=== PATIENT | male | born 1935 | race Caucasian/White ===

== ENCOUNTER 2016-08-15 12:32 | Inpatient (IN) | payer MEDICARE, MEDICAID ==
[~2016-08-15] VITALS: Ht 167.6 cm; Wt 56.4 kg
[~2016-08-15 12:32] MED LIST: CARV3.12 PO; DUTA0.5C PO; FURO-144 PO; PRED20TA PO; ROSU5TAB PO; TERA2CAP4 PO; VALS40TA4 PO
[2016-08-15] MEDS ORDERED: MORPHINE SULFATE INJ 2 MG/ML DISP.SYRIN IV ONE ×2 (13:00→14:30)
[2016-08-15 13:07] LABS: BASOPHILS # (AUTO) 0.2 /CMM (0.0-0.2); BASOPHILS % (AUTO) 1.3 % (0.0-2.0); EOSINOPHILS % (AUTO) 0.3 % (0.0-6.0); HEMATOCRIT 45 % (39-51); HEMOGLOBIN 14.6 g/dL (13.5-17.5); LYMPHOCYTES # (AUTO) 0.8 /CMM (0.8-4.8); LYMPHOCYTES % (AUTO) 5.9 % (20.0-44.0); MEAN CORPUSCULAR HEMOGLOBIN 29 PG (26.0-33.0); MEAN CORPUSCULAR HGB CONC 33 g/dl (31.0-36.0); MEAN CORPUSCULAR VOLUME 89 fL (80-96); MONOCYTES # (AUTO) 0.4 /CMM (0.1-1.30); MONOCYTES % (AUTO) 3.3 % (2.0-12.0); NEUTROPHILS # (AUTO) 12.2 /CMM (1.8-8.9); NEUTROPHILS % (AUTO) 89.2 % (43.0-81.0); PLATELET COUNT (AUTO) 147 /CMM (150-450); RDW COEFFICIENT OF VARIATION 12.6 (11.5-15.0); WHITE BLOOD COUNT (AUTO) 13.6 K/uL (4.3-11.0)
[2016-08-15] MEDS ORDERED: MORPHINE SULFATE INJ 2 MG/ML DISP.SYRIN ONE (13:08)
[2016-08-15 13:17] LABS: CALCIUM, SERUM 9.4 mg/dL (8.5-10.1); CREATININE 0.9 mg/dL (0.6-1.3); POTASSIUM 3.7 mmol/L (3.5-5.1)
[2016-08-15 13:23] LABS: INR 0.97 (0.87-1.13); PROTHROMBIN TIME 10.1 SECS (9.5-12.7)
[2016-08-15 13:26] LABS: TROPONIN I 0.03 ng/mL (0.00-0.056)
--- NOTE | 2016-08-15 14:00 | NUR ---
MS ORR NOTES PATIENT REFUSING TO BE TURNED FOR US TO LOOK AT SACRUM/BACK. PATIENT STATES HE DOESNT HAVE ANYTHING. PT WILL INFORM WHEN HE WILL ALLOW Addendum: 08/18/16 at 0810 by PARRISH MEYER RN INCORRECT TIME; 1600 IS CORRECT TIME
--- NOTE | 2016-08-15 14:04 | NUR ---
PAGED DR MCDANIELS.
--- NOTE | 2016-08-15 14:05 | NUR ---
PAGEMatthew GARCIA FOR ORTHO.
--- NOTE | 2016-08-15 14:21 | NUR ---
REPAGED CAN GARCIA
[2016-08-15] MEDS ORDERED: MORPHINE SULFATE INJ 4 MG/ML DISP.SYRIN ONE (14:29)
[2016-08-15] MEDS ORDERED: hydrALAZINE HCL 25 MG TABLET PO PRN (14:30)
[2016-08-15] MEDS ORDERED: MAGNESIUM HYDROXIDE 30 ML UDC PO PRN (14:30)
[2016-08-15] MEDS ORDERED: ZOLPIDEM TARTRATE 5 MG TABLET PO PRN (14:30)
[2016-08-15] MEDS ORDERED: MAG HYDROX/AL HYDROX/SIMETH 30 ML UDC PO PRN (14:30)
[2016-08-15] MEDS ORDERED: ONDANSETRON HCL/PF 4 MG/2 ML VIAL IVP PRN (14:30)
[2016-08-15] MEDS ORDERED: ALBUTEROL FS 2.5 MG/3 ML VIAL.NEB NEB PRN (14:30)
[2016-08-15] MEDS ORDERED: ACETAMINOPHEN 325 MG TABLET PO PRN (14:30)
[2016-08-15] MEDS ORDERED: VALS40TA11 PO (14:34)
[2016-08-15] MEDS ORDERED: POTA10CA43 PO (14:34)
--- NOTE | 2016-08-15 14:43 | NUR ---
called to give report, was told to call back in 5 min
[2016-08-15] MEDS ORDERED: CEFTRIAXONE 1 G in IV D5W 50 ML IV SCH (15:00)
[2016-08-15] MEDS ORDERED: LORAZEPAM INJ 2 MG/ML VIAL IV PRN (15:00)
[2016-08-15] MEDS ORDERED: IV SET PRIMARY PUMP SET 1 EA INFUS.SET MC ONE (15:07)
[2016-08-15 15:10] VITALS: BP 116/57
[2016-08-15] MEDS: IV NS 0.9% 1,000 ML IV PRN (15:11)
--- NOTE | 2016-08-15 15:15 | NUR ---
MS KIRBY OPENING RECEIVED PT A/OX4 MOSTLY BULGARIAN SPEAKING. TRANSLATION WITH KIRBY ANDERSON. PT STATES 10/10 PAIN WITH MOVEMENT. DENIES SOB DIFFICULTY BREATHING. EQUAL AND UNLABORED RESPIRATIONS. PT STATES NO NEEDS AT THIS TIME AND LEFT IN POSITION OF COMFORT WITH CALL LIGHT IN REACH, BED LOWERED AND LOCKED, RAILS UPX3 FOR SAFETY. PATIENT AWARE WE ARE NEEDING A URINE SAMPLE. PATIENT REFUSING TO CHANGE INTO HOSPITAL GOWN AT THIS TIME, ASKING TO REST FIRST. AWARE WE WILL TAKE PICTURES OF HIS SKIN NOW THEN THAT WE CAN SEE WITHOUT MOVING HIM; PATIENT IS AGREEABLE
--- NOTE | 2016-08-15 15:30 | NUR ---
MS RN NOTES URINE SAMPLE COLLECTED AND LAB PICKED UP
--- NOTE | 2016-08-15 16:00 | NUR ---
MS RN NOTES PT RESTING COMFORTABLY AT THIS TIME. ASLEEP AWAKE TO LIGHT TOUCH
--- NOTE | 2016-08-15 16:18 | NUR ---
MS RN NOTES MD MCKEON AT BEDSIDE.
[2016-08-15 16:44] LABS: APPEARANCE,URINE CLEAR (CLEAR); BILIRUBIN,URINE NEGATIVE (NEGATIVE); BLOOD, URINE TRACE Ery/uL (NEGATIVE); COLOR,URINE YELLOW (YELLOW); KETONES,URINE TRACE (NEGATIVE); LEUKOCYTE ESTERASE ,URINE NEGATIVE (NEGATIVE); NITRITE, URINE NEGATIVE (NEGATIVE); PROTEIN,URINE NEGATIVE (NEGATIVE); UGLUCOSE NEGATIVE (NEGATIVE); UROBILINOGEN,URINE 0.2 EU/dL (0.2)
[2016-08-15] MEDS ORDERED: SECONDARY IV SET 1 EA INFUS.SET MC ONE (17:00)
[2016-08-15 17:02] VITALS: BP 121/68
[2016-08-15] MEDS: CARVEDILOL 3.125 MG TABLET PO SCH (17:07)
[2016-08-15] MEDS ORDERED: ATEN25TA PO (17:27)
[2016-08-15 17:37] LABS: ADD URINE CULTURE NO; RBC,URINE 0-2 /HPF (0-2); WBC,URINE 0-2 /HPF (0-3)
--- NOTE | 2016-08-15 18:33 | NUR ---
MS RN CLOSING PT STABLE NO COMPLICATIONS NO CHANGES. PATIENT RESTING WELL AND STATES NO NEEDS AT THIS TIME. PT WITH CALL LIGHT IN REACH, BED LOWERED AND LOCKED, RAILS UPX3 FOR SAFETY WITH BED ALARM ON. PATIENT CARE WILL BE TRANSFERRED TO KIRBY CASILLAS Addendum: 08/18/16 at 0810 by PARRISH MEYER RN ENDORSED TO RN NEEDING BACK/SACRUM CHECK
--- NOTE | 2016-08-15 19:07 | NUR ---
RN INITIAL NOTES RECEIVED PATIENT IN BED, SLEEPING COMFORTABLY. ON ROOM AIR WITH NO RESPIRATORY DISTRESS NOTED. PATIENT IS EASILY AROUSABLE WITH VERBAL AND TACTILE STIMULI. DENIES PAIN AND DISCOMFORT AT THIS TIME. WITH IVF OF NS AT 75CC/HR, RUNNING ON PATIENT'S R AC, G20, NO SIGNS OF INFILTRATION NOTED. PATIENT'S NEEDS ANTICIPATED AND MET. SAFETY AND COMFORT ENSURED. BED IN LOW AND LOCKED POSITION. CALL LIGHT IN REACH. WILL MONITOR.
[2016-08-15 20:00] VITALS: BP_SYST 113; BP_SYST 96; BP_DIAS 53; BP_DIAS 64
--- NOTE | 2016-08-15 20:30 | NUR ---
RN NOTES PATIENT SEEN AND EXAMINED BY JOSE SALMON. PATIENT SCHEDULED FOR SURGERY IN AM, R HIP INTRAMEDULLARY RODDING C/O DR. EDGE. PATIENT AGREEABLE WITH SURGERY DISCUSSED BY PA. CONSENT OBTAINED FROM PATIENT, SIGNED AND FILED IN CHART.
[2016-08-15] MEDS: ENOXAPARIN SODIUM 40 MG/0.4 ML DISP.SYRIN SQ SCH (21:00)
[2016-08-15] MEDS: MORPHINE SULFATE INJ 2 MG/ML DISP.SYRIN IV PRN (21:02)
[2016-08-15] MEDS: ATORVASTATIN 10 MG TABLET PO SCH (21:03)
--- NOTE | 2016-08-15 21:30 | NUR ---
RN NOTES PATIENT PROVIDED WITH PM CARE. PATIENT EXCLAIMING WITH PAIN WITH CARE RENDERED. PATIENT'S SAFETY AND COMFORT ENSURED AT ALL TIMES. HANDLED GENTLY AT ALL TIMES, MOVED VIA LOG ROLL AND REST PERIODS PROVIDED WITH PATIENT'S TOLERANCE. PATIENT WAS MEDICATED WITH MSO4 ORDERED PRN. PATIENT AT THIS TIME IS RESTING COMFORTABLY IN BED, EASILY AROUSABLE WITH VERBAL AND TACTILE STIMULI. NOT IN ANY DISTRESS. IVF INFUSING WELL. INITIATED O2 AT 2LPM VIA NC FOR COMFORT, PATIENT WAS SATURATING AT 92% ON ROOM AIR, 98% WITH O2. CALL LIGHT IN REACH.
--- NOTE | 2016-08-16 | NUR ---
RN NOTES PLACED PATIENT ON NPO P MN FOR SCHEDULED PROCEDURE IN AM.
[2016-08-16] MEDS: IV NS 0.9% 1,000 ML IV PRN (02:42)
[2016-08-16] MEDS: MORPHINE SULFATE INJ 2 MG/ML DISP.SYRIN IV PRN ×2 (02:42→16:44)
--- NOTE | 2016-08-16 03:17 | NUR ---
RN NOTES PATIENT WOKE UP AT 0230 WITH C/O R HIP PAIN, 01/01, PATIENT MEDICATED PER PATIENT'S REQUEST. PATIENT AT THIS TIME IS SLEEPING COMFORTABLY, ON 2LPM OF O2 VIA NC. RESPIRATION IS EVEN AND UNLABORED. IVF INFUSING WELL ON PATIENT'S R AC. SAFETY AND COMFORT ENSURED. CALL LIGHT IN REACH.
[2016-08-16 06:30] LABS: BASOPHILS % (AUTO) 0.2 % (0.0-2.0); EOSINOPHILS # (AUTO) 0.1 /CMM (0.0-0.7); EOSINOPHILS % (AUTO) 0.7 % (0.0-6.0); HEMATOCRIT 39 % (39-51); HEMOGLOBIN 13.1 g/dL (13.5-17.5); LYMPHOCYTES # (AUTO) 1.2 /CMM (0.8-4.8); MEAN CORPUSCULAR HEMOGLOBIN 30 PG (26.0-33.0); MEAN CORPUSCULAR HGB CONC 33 g/dl (31.0-36.0); MEAN CORPUSCULAR VOLUME 89 fL (80-96); MONOCYTES # (AUTO) 0.5 /CMM (0.1-1.30); MONOCYTES % (AUTO) 4.8 % (2.0-12.0); NEUTROPHILS # (AUTO) 8.4 /CMM (1.8-8.9); NEUTROPHILS % (AUTO) 82.3 % (43.0-81.0); PLATELET COUNT (AUTO) 139 /CMM (150-450); RDW COEFFICIENT OF VARIATION 13.4 (11.5-15.0); RED BLOOD CELL COUNT(AUTO) 4.41 MIL/uL (4.5-6.0); WHITE BLOOD COUNT (AUTO) 10.3 K/uL (4.3-11.0)
[2016-08-16] MEDS: PANTOPRAZOLE 40 MG TABLET.DR PO SCH (06:40)
--- NOTE | 2016-08-16 06:52 | NUR ---
RN CLOSING NOTES PATIENT WITH NO ACUTE DISTRESS OBSERVED OVERNIGHT. PATIENT HANDLED GENTLY WITH CARE AT ALL TIMES. PATIENT'S PAIN MANAGED WITH PAIN MEDICATIONS GIVEN PER PATIENT'S REQUEST, WITH GOOD HELP FOR THE PATIENT, PATIENT ABLE TO SLEEP COMFORTABLY THROUGH THE NIGHT. NOT IN ANY FORM OF DISTRESS, PLACED ON O2 VIA NC AT 2LPM FOR COMFORT. IVF INFUSING WELL, NO SIGNS OF INFILTRATION ON PATIENT'S R AC PIV. PATIENT'S NEEDS ANTICIPATED AND MET. SAFETY AND COMFORT ENSURED. KEPT CLEAN AND DRY. BED IN LOW AND LOCKED POSITION. CALL LIGHT IN REACH. WILL ENDORSE ACCORDINGLY FOR CONTINUITY OF CARE.
--- NOTE | 2016-08-16 07:38 | NUR ---
RN OPEN NOTES RECEIVE REPORT FROM FILLER SIFTER HELPER NURSE. PATIENT IS IN BED, WITH HIS EYE CLOSED, AROUSING TO LIGHT TOUCH AND CALLING HIS NAME. LITHUANIAN SPEAKER. IV SITE IS INTACT AND POTENT, NS IS CURRENTLY RUNNING AT 75ML/HR. NO SIGNS OR SYMPTOMS OF DISTRESS. BED IS IN LOW POSITION, LOCKED AND 2 SIDE-RAILS ARE UP. WILL CONTINUE TO MONITOR AND ASSESS PATIENT THROUGHOUT MY SHIFT.
[2016-08-16 08:00] VITALS: BP 118/59
--- NOTE | 2016-08-16 08:10 | NUR ---
RN NOTES 0900 MEDS PATIENT IS NPO EXCEPT MEDS. SPOKE TO OR SINCE ALL HIS MEDS ARE BLOOD PRESSURE MEDS. CURRENT BLOOD PRESSURE IS 118/59. OR ADVISED TO HOLD ON FOR BP MEDS.
[2016-08-16 08:18] LABS: CALCIUM, SERUM 8.5 mg/dL (8.5-10.1); CREATININE 0.9 mg/dL (0.6-1.3); MAGNESIUM 1.7 mg/dL (1.8-2.4); POTASSIUM 3.5 mmol/L (3.5-5.1)
--- NOTE | 2016-08-16 08:53 | NUR ---
RN NOTES / SURGERY PATIENT IS OFF THE FLOOR FOR SURGERY
[2016-08-16] MEDS ORDERED: FENTANYL PF 100MCG/2ML AMPUL ONE (08:54)
[2016-08-16] MEDS ORDERED: ALBUTEROL FS 2.5 MG/3 ML VIAL.NEB ONE (08:54)
[2016-08-16] MEDS: VALSARTAN 40 MG TABLET PO SCH (09:00)
[2016-08-16] MEDS: CARVEDILOL 3.125 MG TABLET PO SCH ×2 (09:00→16:47)
[2016-08-16] MEDS: FUROSEMIDE 40 MG TABLET PO SCH (09:00)
[2016-08-16] MEDS ORDERED: HYDROMORPHONE INJ 2 MG/ML DISP.SYRIN ONE (10:16)
[2016-08-16] MEDS ORDERED: ANESTHESIA TRAY IN PYXIS 1 EA TRAY MC ONE (10:18)
--- NOTE | 2016-08-16 10:45 | NUR ---
RN NOTES PATIENT CAME BACK FROM SURGERY. BLOOD PRESSURE 124/66, HR 87 OXYGEN 92 DENIED PAIN.
[2016-08-16 11:00] VITALS: BP 116/70
[2016-08-16] MEDS ORDERED: SECONDARY IV SET 1 EA INFUS.SET MC ONE ×2 (11:07→16:38)
[2016-08-16] MEDS: Magnesium 1GM/D5W 100ML PREMIX 100 ML IV SCH ×2 (11:11→13:48)
--- NOTE | 2016-08-16 13:59 | NUR ---
RN NOTES SPOKE WITH DR FOWLER ON THE UNIT. MD DISCONTINUE FLUID. MD MADE AWARE OF POTASSIUM LEVEL OF 3.5. K SUPPLEMENT WILL BE ORDER BY
[2016-08-16] MEDS ORDERED: POTASSIUM CHLORIDE 20 MEQ POWDER PACKET PO ONE (14:00)
[2016-08-16 16:00] VITALS: BP 105/58
[2016-08-16] MEDS: ANCEF 1 GM/50 ML D5W IV SCH ×2 (16:46)
[2016-08-16] MEDS: HYDROCODONE/APAP 5/325MG 1 EACH TABLET PO PRN (19:00)
--- NOTE | 2016-08-16 19:42 | NUR ---
RN CLOSING NOTES GAVE REPORT TO MANAGER OF MEDICAL NURSE. PATIENT CONDITION IS STABLE. IV SITE IS POTENT AND INTACT. BED IN LOW POSITION, LOCKED AND 2 SIDE RAILS ARE UP.
--- NOTE | 2016-08-16 19:43 | NUR ---
RN OPEN NOTES RECEIVED PATIENT AWAKE IN BED. A/O X3. NO SIGNS OF DISTRESS OR DISCOMFORT. BREATHING EVEN AND UNLABORED. IV ACCESS IN RAC PATENT AND INTACT, NO SIGNS OF REDNESS OR INFILTRATION. HAS DRESSING ON RIGHT LEG C/D/I. DENIES ANY PAIN AT THIS TIME. BED IN LOW LOCKED POSITION WITH SIDE RAILS X2. CALL LIGHT WITHIN REACH. WILL CONTINUE TO MONITOR.
[2016-08-16 20:00] VITALS: BP 90/56
--- NOTE | 2016-08-16 20:51 | NUR ---
RN NOTES SPOKE WITH VISH AIRFIELD ENGINEER OFFICER, REGARDING PATIENT BP OF 90/56 WHICH IS LOWER THAN BASELINE BP. PATIENT IS CURRENTLY ASYMPTOMATIC. NO SIGNS OF BLEEDING. PER VISH SHE WILL ORDER STAT H&H AND CONTINUE TO MONITOR.
[2016-08-16] MEDS: ENOXAPARIN SODIUM 40 MG/0.4 ML DISP.SYRIN SQ SCH (21:00)
[2016-08-16 21:28] LABS: BASOPHILS % (AUTO) 0.1 % (0.0-2.0); HEMATOCRIT 36 % (39-51); HEMOGLOBIN 12.1 g/dL (13.5-17.5); LYMPHOCYTES # (AUTO) 0.9 /CMM (0.8-4.8); LYMPHOCYTES % (AUTO) 7.3 % (20.0-44.0); MEAN CORPUSCULAR HEMOGLOBIN 30 PG (26.0-33.0); MEAN CORPUSCULAR HGB CONC 33 g/dl (31.0-36.0); MEAN CORPUSCULAR VOLUME 88 fL (80-96); MONOCYTES # (AUTO) 0.8 /CMM (0.1-1.30); MONOCYTES % (AUTO) 6.7 % (2.0-12.0); NEUTROPHILS # (AUTO) 10.4 /CMM (1.8-8.9); NEUTROPHILS % (AUTO) 85.9 % (43.0-81.0); PLATELET COUNT (AUTO) 131 /CMM (150-450); RDW COEFFICIENT OF VARIATION 13.2 (11.5-15.0); RED BLOOD CELL COUNT(AUTO) 4.09 MIL/uL (4.5-6.0); WHITE BLOOD COUNT (AUTO) 12.1 K/uL (4.3-11.0)
[2016-08-16] MEDS: ATORVASTATIN 10 MG TABLET PO SCH (22:13)
[2016-08-17] VITALS (7 sets, daily range): BP systolic 91–114; BP diastolic 54–69
[2016-08-17] MEDS: ANCEF 1 GM/50 ML D5W IV SCH ×2 (00:47)
--- NOTE | 2016-08-17 00:50 | NUR ---
RN NOTES PATIENT COMPLAIN OF PAIN 6/10 IN RIGHT HIP. ASKED TO HAVE MORPHINE. ADVISED PATIENT BP IS STILL TOO LOW 93/63 TO SAFELY ADMINISTER MORPHINE. ADMINISTERED TYLENOL 650MG INSTEAD. WILL CONTINUE TO MONITOR AND ASSESS.
--- NOTE | 2016-08-17 01:40 | NUR ---
RN NOTES PATIENT IS NOW ASLEEP. WILL CONTINUE TO MONITOR.
[2016-08-17] MEDS: HYDROCODONE/APAP 5/325MG 1 EACH TABLET PO PRN ×5 (05:20→21:15)
--- NOTE | 2016-08-17 05:21 | NUR ---
RN NOTES PATIENT AWOKE STATING HE IS HAVING PAIN 8/10 IN RIGHT HIP. ADMINISTERED NORCO PRN ORDERED. CURRENT BP 98/65 HR 82. WILL CONTINUE TO MONITOR.
--- NOTE | 2016-08-17 06:59 | NUR ---
RN CLOSING NOTES PATIENT RESTING IN BED. A/O X3. NO SIGNS OF DISTRESS OR DISCOMFORT. BREATHING EVEN AND UNLABORED. IV ACCESS IN RAC PATENT AND INTACT, NO SIGNS OF REDNESS OR INFILTRATION. HAS DRESSING ON RIGHT HIP C/D/I. TOLERABLE PAIN LEVEL AT 3/10 AT THIS TIME. NO SIGNIFICANT CHANGES THROUGH THE NIGHT. PATIENT KEPT CLEAN DRY AND COMFORTABLE. BED IN LOW LOCKED POSITION WITH SIDE RAILS X2. CALL LIGHT WITHIN REACH. WILL ENDORSE TO AM SHIFT FOR KRIS.
--- NOTE | 2016-08-17 07:10 | NUR ---
MS RN OPENING RECEIVED PT A/XO4 DENIES SOB, DIFFICULTY BREATHING AND STATES PAIN IS TOLERABLE WITH THE NORCO BEING GIVEN. PT RESPIRATIONS EQUAL AND UNLABORED. PER RN PATIENT BP LOW IN THE 90'S/5O'S AND PER MD AT NIGHT NO ORDERS WE ARE TO MONITOR. PT IS STABLE NO DIZZINESS OR SYMPTOMS. PATIENT STATES NO NEEDS AT THIS TIME AND IN POSITION OF COMFORT. CALL LIGHT IN REACH, BED LOWERED AND LOCKED, RAILS UPX3 FOR SAFETY WITH BED ALARM ON. WILL ROUND Q2H OR LESS PER NEEDS
[2016-08-17 07:23] LABS: CALCIUM, SERUM 8.5 mg/dL (8.5-10.1); MAGNESIUM 2.2 mg/dL (1.8-2.4); PHOSPHORUS 3.1 mg/dL (2.5-4.9); POTASSIUM 4.6 mmol/L (3.5-5.1)
[2016-08-17 08:00] LABS: BASOPHILS % (AUTO) 0.2 % (0.0-2.0); EOSINOPHILS # (AUTO) 0.1 /CMM (0.0-0.7); HEMATOCRIT 37 % (39-51); HEMOGLOBIN 12.5 g/dL (13.5-17.5); LYMPHOCYTES # (AUTO) 1.4 /CMM (0.8-4.8); MEAN CORPUSCULAR HEMOGLOBIN 30 PG (26.0-33.0); MEAN CORPUSCULAR HGB CONC 34 g/dl (31.0-36.0); MEAN CORPUSCULAR VOLUME 89 fL (80-96); MONOCYTES # (AUTO) 0.6 /CMM (0.1-1.30); MONOCYTES % (AUTO) 6.1 % (2.0-12.0); NEUTROPHILS % (AUTO) 78.7 % (43.0-81.0); PLATELET COUNT (AUTO) 121 /CMM (150-450); RDW COEFFICIENT OF VARIATION 13.4 (11.5-15.0); RED BLOOD CELL COUNT(AUTO) 4.17 MIL/uL (4.5-6.0); WHITE BLOOD COUNT (AUTO) 10.2 K/uL (4.3-11.0)
[2016-08-17] MEDS: PANTOPRAZOLE 40 MG TABLET.DR PO SCH (08:30)
[2016-08-17] MEDS: VALSARTAN 40 MG TABLET PO SCH (08:31)
[2016-08-17] MEDS: CARVEDILOL 3.125 MG TABLET PO SCH ×2 (08:31→16:46)
[2016-08-17] MEDS: FUROSEMIDE 40 MG TABLET PO SCH (08:31)
[2016-08-17] MEDS: Z GUARD REMEDY 2 OZ OINT TP PRN (08:32)
--- NOTE | 2016-08-17 08:40 | NUR ---
MS RN NOTES PATIENT EDUCATED TO WHY WE ARE NOT GIVING BP MEDICATIONS AND LASIX THIS AM. PATIENT STATES UNDERSTANDING. BP BETTER AT THIS TIME 97/55
--- NOTE | 2016-08-17 09:00 | NUR ---
MS RN NOTES PATIENT SACRUM REDDENED. HE IS REFUSING TO HAVE LINENS CHANGED. HE USES URINAL AND AT TIMES CAN MISS MAKING HIMSELF WET. EDUCATED PATIENT ON IMPORTANCE OF OFFLOADING AND TURNING.
[2016-08-17] MEDS ORDERED: DIFL5DRO OP (10:17)
--- NOTE | 2016-08-17 12:00 | NUR ---
MS RN NOTES DR MCDANIELS AWARE OF LOW BP THIS AM AND LAST NIGHT. PT STABLE
--- NOTE | 2016-08-17 12:05 | NUR ---
MS RN NOTES PER DR MCDANIELS GIVE LOVENOX 1 DOSE NOW. SQ 40MG
[2016-08-17 12:26] LABS: ALBUMIN 2.9 g/dL (3.4-5.0); BILIRUBIN,DIRECT 0.1 mg/dL (0.0-0.2); BILIRUBIN,TOTAL 0.7 mg/dL (0.2-1.0); TOTAL PROTEIN, SERUM 6.5 g/dL (6.4-8.2)
[2016-08-17] MEDS ORDERED: ENOXAPARIN SODIUM 40 MG/0.4 ML DISP.SYRIN SQ ONE (12:30)
[2016-08-17] MEDS: ENOXAPARIN SODIUM 40 MG/0.4 ML DISP.SYRIN SQ SCH (12:42)
--- NOTE | 2016-08-17 13:25 | NUR ---
MS RN NOTES PER DR ENEDELIA ROBERTS TO CHANGE NORCO TO Q3H FOR PATIENT
--- NOTE | 2016-08-17 17:26 | NUR ---
MS RN NOTES NOTIFIED VIVIAN PAN THAT PATIENT DAUGHTER CALLED AND PICKED SNF [facility] [address].
--- NOTE | 2016-08-17 18:39 | NUR ---
MS RN CLOSING PT STABLE NO COMPLICATIONS THROUGHOUT THE DAY. PAIN CONTROLLED WITH PRN MEDICATIONS AND NON PHARM MEASURES. ALL DUE MEDS GIVEN AND ALL NEEDS MET. PATIENT STATES NO NEEDS. CALL LIGHT IN REACH, BED LOWERED AND LOCKED, RAILS UPX3 FOR SAFETY AND BED ALARM ON. PATIENT STABLE AT THIS TIME. CARE WILL BE ENDORSED TO RN AT THIS TIME
--- NOTE | 2016-08-17 19:20 | NUR ---
RN OPEN NOTES RECEIVED PATIENT AWAKE IN BED. A/O X4. NO SIGNS OF DISTRESS OR DISCOMFORT. BREATHING EVEN AND UNLABORED. PER AM RN AWARE OF LOW BP'S, NO NEW ORDERS GIVEN. PATIENT STABLE WITH NO SIGNS OF BLEEDING. IV ACCESS IN RAC PATENT AND INTACT, NO SIGNS OF REDNESS OR INFILTRATION. HAS DRESSING ON RIGHT LEG C/D/I. STATES PAIN IS TOLERABLE 3/10 AT THIS TIME. BED IN LOW LOCKED POSITION WITH SIDE RAILS X2. CALL LIGHT WITHIN REACH. WILL CONTINUE TO MONITOR.
[2016-08-17] MEDS: ATORVASTATIN 10 MG TABLET PO SCH (21:14)
[2016-08-18] MEDS: HYDROCODONE/APAP 5/325MG 1 EACH TABLET PO PRN ×3 (00:59→11:39)
--- NOTE | 2016-08-18 07:15 | NUR ---
MS RN OPENING RECEIVED PT A/OX4 STATES PAIN CONTROLLED WITH PRN MEDICATIONS. PATIENT YESTERDAY DID NOT WANT TO GET OUT OF BED AND PER NIGHT NURSE HE ALLOWED HER TO TAKE PICTURES OF HIS SACRUM LAST NIGHT. EDUCATED PATIENT AGAIN IMPORTANCE OF GETTING OUT OF BED AND ALLOWING US TO ASSIST WITH REPOSITIONING. PATIENT STATES UNDERSTANDING. NO SOB OR DIFFICULTY BREATHING. EQUAL AND UNLABORED RESPIRATIONS. PATIENT WITH CALL LIGHT IN REACH, BED LOWERED AND LOCKED,RAILS UPX3 FOR SAFETY WITH BED ALARM ON. WILL ROUND Q2H OR LESS PER NEEDS
--- NOTE | 2016-08-18 07:27 | NUR ---
MS RN NOTES SACRUM MUCH LESS RED THIS AM PATIENT STATES HE WILL ALLOW US TO OFFLOAD HIM WITH PILLOWS TODAY
[2016-08-18 07:35] LABS: BASOPHILS % (AUTO) 0.3 % (0.0-2.0); EOSINOPHILS # (AUTO) 0.2 /CMM (0.0-0.7); HEMATOCRIT 36 % (39-51); HEMOGLOBIN 12.1 g/dL (13.5-17.5); LYMPHOCYTES # (AUTO) 1.2 /CMM (0.8-4.8); LYMPHOCYTES % (AUTO) 16.1 % (20.0-44.0); MEAN CORPUSCULAR HEMOGLOBIN 30 PG (26.0-33.0); MEAN CORPUSCULAR HGB CONC 34 g/dl (31.0-36.0); MEAN CORPUSCULAR VOLUME 90 fL (80-96); MONOCYTES # (AUTO) 0.5 /CMM (0.1-1.30); MONOCYTES % (AUTO) 6.9 % (2.0-12.0); NEUTROPHILS # (AUTO) 5.8 /CMM (1.8-8.9); NEUTROPHILS % (AUTO) 74.7 % (43.0-81.0); PLATELET COUNT (AUTO) 121 /CMM (150-450); RED BLOOD CELL COUNT(AUTO) 3.98 MIL/uL (4.5-6.0); WHITE BLOOD COUNT (AUTO) 7.7 K/uL (4.3-11.0)
[2016-08-18 07:39] LABS: CALCIUM, SERUM 8.4 mg/dL (8.5-10.1); CREATININE 0.9 mg/dL (0.6-1.3); PHOSPHORUS 3.4 mg/dL (2.5-4.9); POTASSIUM 4.7 mmol/L (3.5-5.1)
--- NOTE | 2016-08-18 07:54 | NUR ---
RN CLOSING NOTES PATIENT RESTING IN BED. A/O X4. NO SIGNS OF DISTRESS OR DISCOMFORT. BREATHING EVEN AND UNLABORED. IV ACCESS IN RAC PATENT AND INTACT, NO SIGNS OF REDNESS OR INFILTRATION. HAS DRESSING ON RIGHT HIP C/D/I. TOLERABLE PAIN LEVEL AT 3/10 AT THIS TIME. NO SIGNIFICANT CHANGES THROUGH THE NIGHT. PATIENT KEPT CLEAN DRY AND COMFORTABLE. REPOSITIONED PATIENT Q2H. BED IN LOW LOCKED POSITION WITH SIDE RAILS X2. CALL LIGHT WITHIN REACH. ENDORSED TO AM SHIFT FOR KRIS.
[2016-08-18 08:00] VITALS: BP 98/56
--- NOTE | 2016-08-18 08:19 | NUR ---
WOUND CARE CONSULT: PATIENT SEEN AND SKIN ASSESSMENT DONE. PATIENT ALERT, C/O RIGHT HIP PAIN, CONTINENT, TEJAS 14, HAS DIFFICULTY TURNING AND REPOSITIONING WITHOUT ASSIST, NURSING STAFF ORDERED CHANCE ISOFLEX SYLVESTER BED AND WILL BE PLACED WHEN AVAILABLE IN THE UNIT. SEE TODAY'S SKIN ASSESSMENT IN PCS ALONG WITH RECOMMENDATIONS. RECOMMEND MOISTURE PROTECTION WITH Z GUARD ORDERED, TURN AND REPOSITION EVERY 2 HRS PATIENT CONDITION PERMITS, OFFLOAD HEELS. ALL DISCUSSED WITH NURSING STAFF. MD IN AGREEMENT WITH PLAN OF CARE. Addendum: 08/18/16 at 0823 by MIKE CM WNDNU Amended: Links added.
--- NOTE | 2016-08-18 08:30 | NUR ---
MS RN NOTES PATIENT UP OUT OF BED SITTING IN CHAIR. STATES HE DOES NOT NEED ANY PAIN MEDICATIONS AT THIS TIME.
[2016-08-18] MEDS: PANTOPRAZOLE 40 MG TABLET.DR PO SCH (08:36)
[2016-08-18 08:47] VITALS: BP 100/55
[2016-08-18] MEDS: CARVEDILOL 3.125 MG TABLET PO SCH (08:47)
[2016-08-18] MEDS: ENOXAPARIN SODIUM 40 MG/0.4 ML DISP.SYRIN SQ SCH (08:47)
[2016-08-18] MEDS: Z GUARD REMEDY 2 OZ OINT TP PRN (08:47)
[2016-08-18] MEDS: FUROSEMIDE 40 MG TABLET PO SCH (09:00)
--- NOTE | 2016-08-18 09:00 | NUR ---
MS RN NOTES PHYSICAL THERAPY WORKING WITH PATIENT.
--- NOTE | 2016-08-18 10:38 | NUR ---
MS RN NOTES PER DR ENEDELIA ROBERTS TO NON ADMIN LASIX AND NO BP MEDS PATIENT DOES NOT NEED
[2016-08-18] MEDS ORDERED: ASPI81TA2 PO (10:58)
--- NOTE | 2016-08-18 11:30 | NUR ---
MS RN NOTES TALKED TO MIKE AND ALEJANDRA FOR RN TO CHANGE DRESSING AND PATIENT IS TO FOLLOW UP WITH DR EDGE IN 1-2 WEEKS
--- NOTE | 2016-08-18 14:20 | NUR ---
MS RN NOTES PER DAUGHTER SREE PATIENT WILL GO HOME AND A FAMILY MEMBER WILL PICK HIM UP SHORTLY. CM AWARE AND IS ALREADY SETTING UP HOME HEALTH FOR PATIENT
--- NOTE | 2016-08-18 15:00 | NUR ---
MS TRAY WORKER PT STABLE NO COMPLICATIONS NO CHANGES. PATIENT AMBULATED WITH PHYSICAL THERAPY WITH VERY MINIMAL ASSISTANCE AND WITH WALKER. PATIENT BROTHER HERE FOR TRANSPORT HOME. PATIENT GIVEN RX FOR NORCO. PATIENT GIVEN DR EDGE INFORMATION AND EDUCATED ON DC MATERIAL AND DRESSING CARE. PATIENT IV REMOVED PRESSURE AND DRESSING APPLIED NO BLEEDING. PATIENT EDUCATED ON MONITORING BLOOD PRESSURE, SLOW MOVEMENTS AND HIS BLOOD PRESSURE MEDICATIONS AND LASIX. PATIENT STATES UNDERSTANDING AND ALL TRANSLATED WITH KIRBY ANDERSON. PATIENT SIGNED DC MATERIAL AND BELONGINGS LIST ALL ACCOUNTED FOR. PATIENT STATES NO FURTHER QUESTIONS. PATIENT ASSISTED TO CAR IN WHEELCHAIR WITH ANGEL PINEDO NO COMPLAINTS. PATIENT LEFT PREMISES IN STABLE CONDITION
== END 2016-08-18 15:00 | disposition home health service (06) | DRG 481 ==
LOC: ER 12:36 → MED 13:56
PROVIDERS: ADMIT Internal Medicine; ATTEND Internal Medicine
PROC: 0QS606Z Reposition Right Upper Femur with Intramedullary Internal Fixation Device, Open Approach (ICD-10-PCS; principal; 2016-08-16 09:00)
DX: S72.141A Displaced intertrochanteric fracture of right femur, initial encounter for closed fracture (principal); I50.22 Chronic systolic (congestive) heart failure; I42.9 Cardiomyopathy, unspecified; W01.0XXA Fall on same level from slipping, tripping and stumbling without subsequent striking against object, initial encounter; Y93.01 Activity, walking, marching and hiking; I25.10 Atherosclerotic heart disease of native coronary artery without angina pectoris; D72.829 Elevated white blood cell count, unspecified; E78.5 Hyperlipidemia, unspecified; I11.0 Hypertensive heart disease with heart failure; J44.9 Chronic obstructive pulmonary disease, unspecified; N40.0 Benign prostatic hyperplasia without lower urinary tract symptoms; I35.1 Nonrheumatic aortic (valve) insufficiency; I73.9 Peripheral vascular disease, unspecified
CPT/HCPCS: 36415; 71010-TC; 73501; 73510-TC; 80048-TC; 80061-TC; 80076-TC; 81000-TC; 83735-TC; 84100-TC; 84484-TC; 85025-TC; 85730-TC; 86850-TC; 87040-TC; 87081-TC; 87086-TC; 88305-TC; 88311-TC; 94799-TC; 97001-TC; 97003-TC; 97110-TC; 97116-TC; 97530-TC; A4606; J0690; J0696; J1170; J1650; J2270; J3010; J3475; J7030; J7060; Z7610

== ENCOUNTER 2017-01-10 18:38 | Inpatient (IN) | payer MEDICARE, MEDICAID ==
[2017-01-10] VITALS (20 sets, daily range): BP systolic 73–147; BP diastolic 43–88
[~2017-01-10] VITALS: Ht 162.6 cm; Wt 50.8 kg
[~2017-01-10 18:38] MED LIST changes: +ASPI81TA2 PO; +DIFL5DRO OP; -DUTA0.5C PO; -FURO-144 PO; -PRED20TA PO; -TERA2CAP4 PO; -VALS40TA4 PO
--- NOTE | 2017-01-10 18:38 | NUR ---
PATIENT BIB RA C/O SOB. PATIENT O2 WAS 81 % ON ROOM AIR. PATIENT RECEIVED 3 SPRAYS OF NITRO ON ROUTE. NON REBREATHER UPON ARRIVAL. PATIENTS TRANSFERRED TO BED. SAFETY AND COMFORT MEASURES IN PLACE. MD AT BEDSIDE AWAITING ORDERS.
[2017-01-10] MEDS ORDERED: Magnesium 1GM/D5W 100ML PREMIX 200 ML IV ONE ×2 (18:41→18:57)
[2017-01-10] MEDS ORDERED: NTG 50 MG/D5W250 ML BOTTL 250 ML IV ONE (18:41)
--- NOTE | 2017-01-10 18:45 | NUR ---
PER DR. CELIS, START PATIENT ON NITRO DRIP AT 10MCG/MIN. MED PULLED AND STARTED FOR PATIENT.
--- NOTE | 2017-01-10 18:45 | NUR ---
PATIENT PLACED ON BIPAP BY RT PER DR. RICHARDSON ORDERS.
[2017-01-10] MEDS ORDERED: IPRATROPIUM NEB FS 0.5 MG/2.5 ML AMPUL.NEB ONE (18:51)
[2017-01-10] MEDS ORDERED: ALBUTEROL FS 2.5 MG/3 ML VIAL.NEB ONE (18:51)
--- NOTE | 2017-01-10 18:54 | NUR ---
PER DR. CELIS HOLD OFF ON NITRO DRIP AT THIS TIME. WILL REASSESS IF NEEDED AFTER BREATHING TREATMENT AND OTHER MEDICATIONS.
[2017-01-10] MEDS ORDERED: DEXAMETHASONE SOD PHOSPHATE 10 MG/ML VIAL ONE (18:57)
[2017-01-10] MEDS ORDERED: ALBUTEROL FS 2.5 MG/3 ML VIAL.NEB CONTNEB ONE (19:00)
[2017-01-10] MEDS ORDERED: DEXAMETHASONE SOD PHOSPHATE 10 MG/ML VIAL IV ONE (19:00)
[2017-01-10] MEDS ORDERED: IPRATROPIUM NEB FS 0.5 MG/2.5 ML AMPUL.NEB NEB ONE (19:00)
--- NOTE | 2017-01-10 19:06 | NUR ---
PER DR. CELIS, INFUSE 2 BAGS MAG OVER ABOUT 10 MIN SPAN. MAG GIVEN BOLUS ON LEFT AC, 18 G.
[2017-01-10 19:11] LABS: ABG BASE EXCESS -2.8 mmol/L; ABG OXYGEN SATURATION 93.9 % (92.0-98.5); ABG PCO2 59.7 mmHg (35.0-45.0); ABG PH 7.252 (7.350-7.450); ABG PO2 84.8 mmHg (75.0-100.0); AaDO2 204.5 mmHg; MetHb 0.4 % (0.0-1.5); O2Hb 91.6 % (94.0-97.0); SITE, ABG Right Radial
[2017-01-10] MEDS ORDERED: CARV3.122 PO (19:11)
[2017-01-10] MEDS ORDERED: LURA40TA PO (19:11)
[2017-01-10] MEDS ORDERED: POTA10TA15 PO (19:11)
[2017-01-10] MEDS ORDERED: FURO-144 PO (19:11)
[2017-01-10 19:12] LABS: CALCIUM, SERUM 8.9 mg/dL (8.5-10.1); CARBON DIOXIDE 27 mmol/L (21-32); CHLORIDE 104 mmol/L (98-107); CREATININE 1.5 mg/dL (0.6-1.3); GLUCOSE 238 mg/dL (74-106); POTASSIUM 4.1 mmol/L (3.5-5.1); SODIUM SERUM 142 mmol/L (136-145); UREA NITROGEN, BLOOD 30 mg/dL (7-18)
[2017-01-10 19:13] LABS: BASOPHILS # (AUTO) 0.1 /CMM (0.0-0.2); BASOPHILS % (AUTO) 0.9 % (0.0-2.0); EOSINOPHILS # (AUTO) 0.2 /CMM (0.0-0.7); EOSINOPHILS % (AUTO) 1.3 % (0.0-6.0); HEMATOCRIT 48 % (39-51); HEMOGLOBIN 15.6 g/dL (13.5-17.5); LYMPHOCYTES # (AUTO) 4.5 /CMM (0.8-4.8); LYMPHOCYTES % (AUTO) 35.2 % (20.0-44.0); MEAN CORPUSCULAR HEMOGLOBIN 29 PG (26.0-33.0); MEAN CORPUSCULAR HGB CONC 33 g/dl (31.0-36.0); MEAN CORPUSCULAR VOLUME 89 fL (80-96); MONOCYTES # (AUTO) 0.5 /CMM (0.1-1.30); MONOCYTES % (AUTO) 3.7 % (2.0-12.0); NEUTROPHILS # (AUTO) 7.4 /CMM (1.8-8.9); NEUTROPHILS % (AUTO) 58.9 % (43.0-81.0); PLATELET COUNT (AUTO) 157 /CMM (150-450); RDW COEFFICIENT OF VARIATION 14.3 (11.5-15.0); RED BLOOD CELL COUNT(AUTO) 5.37 MIL/uL (4.5-6.0); WHITE BLOOD COUNT (AUTO) 12.7 K/uL (4.3-11.0)
[2017-01-10 19:20] LABS: TROPONIN I 0.054 ng/mL (0.00-0.056)
--- NOTE | 2017-01-10 19:20 | NUR ---
TONO TO KIRBY LANDRUM FOR KRIS.
[2017-01-10 19:25] LABS: ALANINE AMINOTRANSFERASE 24 U/L (12-78); ALBUMIN 3.8 g/dL (3.4-5.0); ALKALINE PHOSPHATASE 127 U/L (46-116); ASPARTATE AMINOTRANSFERASE 24 U/L (15-37); B-TYPE NATRIURETIC PEPTIDE 8316 PG/ML (0-125); BILIRUBIN,DIRECT 0.2 mg/dL (0.0-0.2); BILIRUBIN,TOTAL 0.6 mg/dL (0.2-1.0); TOTAL PROTEIN, SERUM 7.9 g/dL (6.4-8.2)
--- NOTE | 2017-01-10 19:25 | NUR ---
ICU 256
--- NOTE | 2017-01-10 19:38 | NUR ---
PATIENT BP 97/60. MD CELIS NOTIFIED. ADMIN 500ML NS BOLUS ORSDERED
[2017-01-10] MEDS ORDERED: IV NS 0.9% 500 ML IV ONE (20:00)
--- NOTE | 2017-01-10 20:06 | NUR ---
PT BP NOW 108/71M MD CELIS NOTIFIED
[2017-01-10 20:28] LABS: BAND % (MANUAL) 2 % (0.0-5.0); BASOPHILS % (MANUAL) 0 % (0.0-2.0); EOSINOPHILS % (MANUAL) 3 % (0-4); LYMPHOCYTES % (MANUAL) 31 % (16-48); MONOCYTES % (MANUAL) 4 % (0-11.0); NEUTROPHILS % (MANUAL) 60 (42-76)
[2017-01-10] MEDS ORDERED: NOREPINEPHRINE 8 MG in IV D5W 500 ML IV PRN ×2 (20:30→22:30)
[2017-01-10] MEDS ORDERED: ONDANSETRON HCL/PF 4 MG/2 ML VIAL IVP PRN (20:30)
[2017-01-10] MEDS ORDERED: DEXTROSE 50%-WATER 50 ML DISP.SYRIN IV PRN (20:30)
[2017-01-10] MEDS ORDERED: ACETAMINOPHEN 325 MG TABLET PO PRN (20:30)
[2017-01-10] MEDS ORDERED: FUROSEMIDE 100 MG/10 ML VIAL IV ONE (21:00)
[2017-01-10] MEDS ORDERED: MORPHINE SULFATE INJ 4 MG/ML DISP.SYRIN IV PRN (21:00)
--- NOTE | 2017-01-10 21:00 | NUR ---
At 2034 Received patient from ED via ACLS protocol.Patient admitted for COPD exacerbation and respiratory failure.Patient awake alert and oriented x 3.Moves all extremities.Place on BIPAP 15/5.FIO2 50%,rate 6 sating 96%.Noted sob on exertion with bilateral wheezing.SR per monitor.Denies pain.Initial admission assessment done.Plan of care explained to patient.Verbalized understanding.
[2017-01-10] MEDS ORDERED: FUROSEMIDE 100 MG/10 ML VIAL ONE (21:25)
[2017-01-10] MEDS ORDERED: CEFTRIAXONE 1 G VIAL ONE (21:25)
--- NOTE | 2017-01-10 21:30 | NUR ---
Patient Lactic Acid 2.4 called to EPIC PROFESSIONALDewayne.No new orders received.Per EPIC PROFESSIONAL patient with CHF.
[2017-01-10] MEDS: CEFTRIAXONE 1 G in IV D5W 50 ML IV SCH (21:34)
[2017-01-10] MEDS: BLOOD SUGAR DIAGNOSTIC 1 EACH STRIP IN SCH (21:48)
[2017-01-10] MEDS ORDERED: NOREPINEPHRINE 4 MG/4 ML AMPUL IV ONE (21:53)
[2017-01-10] MEDS ORDERED: INSULIN REGULAR, HUMAN 100 UNIT/ML 3 ML VIAL ONE (22:11)
--- NOTE | 2017-01-10 22:11 | NUR ---
Patient hemodynamically unstable.SBP 70's.80's.Levophed drip started and will titrate accordingly to keep SBP >90
[2017-01-10] MEDS: INSULIN REGULAR, HUMAN 100 UNIT/ML 3 ML VIAL SQ PRN (22:15)
[2017-01-11] VITALS (75 sets, daily range): BP systolic 64–140; BP diastolic 27–110
--- NOTE | 2017-01-11 00:10 | NUR ---
Mari from [facility]epsis Surveillance called.Aware of lactic acid.Fluid not given due CHF.
--- NOTE | 2017-01-11 00:40 | NUR ---
Patient very agitated refused BIPAP and mcdonald catheter.Placed on 2L NC tytsih13%.Continue to monitor.
--- NOTE | 2017-01-11 04:00 | NUR ---
Patient awake in no distress.VS stable.Diaper soaking wet.Bathed and linens changed.Voided per urinal.Denies pain or any discomfort.Turned and repositioned.
[2017-01-11 05:38] LABS: CALCIUM, SERUM 9.2 mg/dL (8.5-10.1); CARBON DIOXIDE 31 mmol/L (21-32); CHLORIDE 105 mmol/L (98-107); CREATININE 1.2 mg/dL (0.6-1.3); GLUCOSE 170 mg/dL (74-106); MAGNESIUM 2.4 mg/dL (1.8-2.4); PHOSPHORUS 4.4 mg/dL (2.5-4.9); POTASSIUM 3.9 mmol/L (3.5-5.1); SODIUM SERUM 145 mmol/L (136-145); UREA NITROGEN, BLOOD 29 mg/dL (7-18)
[2017-01-11 05:44] LABS: CHOLESTEROL 166 mg/dL (<200); HDL CHOLESTEROL 100 mg/dL (40-60); LDL 57 mg/dL (0-99); THYROID STIMULATING HORMONE 0.819 uIU/mL (0.358-3.74); TRIGLYCERIDES 49 mg/dL (30-150)
--- NOTE | 2017-01-11 06:00 | NUR ---
Patient standing at side of bed voiding per urinal.Bed alarm on.Reinstructed patient not to get out of bed without calling the nurse.Call light at bedside within easy reach.Bed low and locked and alarm on.Denies any discomfort.
--- NOTE | 2017-01-11 07:00 | NUR ---
RN NOTES RECEIVED PT ON BED, A/Ox3, RESPIRATION EVEN AND UNLABORED, ON 02 2L N/C , NO SOB NOTED, O2 SAT 100% AT THIS TIME , ON TELE SR IN 60'S , R AC G #18 IV SITE CDI, LEVO GTT OFF AT THIS TIME , VSS STABLE , SR UP x3, CALL LIGHT WITHIN EASY REACH , CONTINUE TO MONITOR PT CLOSELY AND NOTIFY MD FOR ANY SIGNIFICANT CHANGES .
[2017-01-11] MEDS: INSULIN REGULAR, HUMAN 100 UNIT/ML 3 ML VIAL SQ PRN ×4 (07:50→21:33)
[2017-01-11] MEDS: BLOOD SUGAR DIAGNOSTIC 1 EACH STRIP IN SCH ×4 (07:51→21:31)
[2017-01-11] MEDS: HEPARIN SODIUM, PORCINE 5000 UNITS/1 ML VIAL SQ SCH ×2 (08:30→21:02)
[2017-01-11] MEDS: methylPREDNISolone SOD SUCC 40 MG/ML VIAL IV SCH ×3 (08:31→16:30)
[2017-01-11] MEDS: FAMOTIDINE/PF INJ 20 MG/2 ML VIAL IV SCH ×2 (08:31→21:01)
[2017-01-11] MEDS: POTASSIUM CHLORIDE 20 MEQ TAB.PRT.SR PO SCH (08:33)
[2017-01-11] MEDS: FUROSEMIDE 80 MG TABLET PO SCH (08:33)
[2017-01-11 08:44] LABS: TROPONIN I 0.126 ng/mL (0.00-0.056)
[2017-01-11] MEDS ORDERED: PANTOPRAZOLE 40 MG VIAL IV SCH (09:00)
[2017-01-11] MEDS ORDERED: ALBUTEROL HALF STRENGTH 1.25 MG/3 ML VIAL.NEB NEB SCH ×2 (10:00→10:05)
[2017-01-11 10:09] LABS: BASOPHILS % (AUTO) 0.2 % (0.0-2.0); EOSINOPHILS % (AUTO) 0.1 % (0.0-6.0); HEMATOCRIT 39 % (39-51); HEMOGLOBIN 13.2 g/dL (13.5-17.5); LYMPHOCYTES % (AUTO) 8.7 % (20.0-44.0); MEAN CORPUSCULAR HEMOGLOBIN 30 PG (26.0-33.0); MEAN CORPUSCULAR HGB CONC 34 g/dl (31.0-36.0); MEAN CORPUSCULAR VOLUME 88 fL (80-96); MONOCYTES # (AUTO) 0.3 /CMM (0.1-1.30); MONOCYTES % (AUTO) 2.5 % (2.0-12.0); NEUTROPHILS # (AUTO) 10.6 /CMM (1.8-8.9); NEUTROPHILS % (AUTO) 88.5 % (43.0-81.0); PLATELET COUNT (AUTO) 83 /CMM (150-450); RDW COEFFICIENT OF VARIATION 15.4 (11.5-15.0); RED BLOOD CELL COUNT(AUTO) 4.44 MIL/uL (4.5-6.0)
[2017-01-11 10:25] LABS: BAND % (MANUAL) 2 % (0.0-5.0); LYMPHOCYTES % (MANUAL) 11 % (16-48); MONOCYTES % (MANUAL) 2 % (0-11.0); NEUTROPHILS % (MANUAL) 85 (42-76)
--- NOTE | 2017-01-11 11:26 | NUR ---
RANCH SUPERVISOR PATIENT NOTED TO BE HYPOTENSIVE. RN CALLED THE SYSTEMS MANAGER. RECEIVED MD ORDERS TO CANCEL TRANSFER ORDERS TO THE [facility] AND MONITOR IN ICU OVER NIGHT. MAP GOAL TO KEEP ABOVE 60.
[2017-01-11] MEDS ORDERED: DOPamine 400 MG in IV D5W 250 ML IV PRN (11:30)
[2017-01-11] MEDS: IPRATROPIUM NEB FS 0.5 MG/2.5 ML AMPUL.NEB NEB SCH ×4 (11:30→23:00)
[2017-01-11] MEDS: ALBUTEROL HALF STRENGTH 1.25 MG/3 ML VIAL.NEB NEB SCH ×4 (11:30→23:00)
[2017-01-11 12:17] LABS: APPEARANCE,URINE CLEAR (CLEAR); BILIRUBIN,URINE NEGATIVE (NEGATIVE); BLOOD, URINE NEGATIVE Ery/uL (NEGATIVE); COLOR,URINE YELLOW (YELLOW); KETONES,URINE NEGATIVE (NEGATIVE); LEUKOCYTE ESTERASE ,URINE NEGATIVE (NEGATIVE); NITRITE, URINE NEGATIVE (NEGATIVE); PROTEIN,URINE NEGATIVE (NEGATIVE); UGLUCOSE NEGATIVE (NEGATIVE); UROBILINOGEN,URINE 0.2 EU/dL (0.2)
--- NOTE | 2017-01-11 14:00 | NUR ---
RN NOTES PT OUT OF BED TO CHAIR , VSS STABLE , LOUIE ANY DISTRESS , CONTINUE TO MONITOR.
--- NOTE | 2017-01-11 15:39 | NUR ---
RT PATIENT REFUSED RESP HHN TX. STATING HE IS NOT SHORT OF BREATH. CLEAR B/S NO SOB. RN AWARE OF REFUSAL
[2017-01-11] MEDS ORDERED: NOREPINEPHRINE 16 MG in IV D5W 500 ML IV PRN (17:00)
--- NOTE | 2017-01-11 18:00 | NUR ---
RN NOTES PT SITING ON A CHAIR, STATED WANTS TO GO HOME IN AM , MEDICATED PER MD ORDER, LOUIE ANY DISTRESS , WILL ENDORSE TO STONECUTTER FOR CONTINUITY OF CARE
--- NOTE | 2017-01-11 19:26 | NUR ---
PT REF BREATHING TX. RN NOTIFIED.
--- NOTE | 2017-01-11 19:30 | NUR ---
Received patient awake alert oriented x 3 sitting at bedside chair watching TV.No distress noted. SR 70's with occasional pvc's.SBP low 90's.Denies pain or sob.SPO2 96% on RA.Refused O2 NC at this time.Fall precaution initiated with call light at bedside within easy reach.Instructed to call for assistance when getting out of chair.Verbalized understanding.
--- NOTE | 2017-01-11 20:30 | NUR ---
Patient back to bed and made comfortable.Call light at BS with instructions.Continue monitoring.
[2017-01-11] MEDS: CEFTRIAXONE 1 G in IV D5W 50 ML IV SCH (21:01)
[2017-01-11] MEDS ORDERED: IV NS 0.9% 250 ML BAG IV ONE (21:30)
[2017-01-12] VITALS (14 sets, daily range): BP systolic 91–139; BP diastolic 43–68
--- NOTE | 2017-01-12 | NUR ---
Patient resting.VS remains stable.Denies any discomfort.
[2017-01-12] MEDS: IPRATROPIUM NEB FS 0.5 MG/2.5 ML AMPUL.NEB NEB SCH ×3 (03:14→11:21)
[2017-01-12] MEDS: ALBUTEROL HALF STRENGTH 1.25 MG/3 ML VIAL.NEB NEB SCH ×3 (03:15→11:21)
[2017-01-12 05:05] LABS: HEMATOCRIT 38 % (39-51); HEMOGLOBIN 12.7 g/dL (13.5-17.5); LYMPHOCYTES # (AUTO) 0.8 /CMM (0.8-4.8); LYMPHOCYTES % (AUTO) 4.6 % (20.0-44.0); MEAN CORPUSCULAR HEMOGLOBIN 29 PG (26.0-33.0); MEAN CORPUSCULAR HGB CONC 33 g/dl (31.0-36.0); MEAN CORPUSCULAR VOLUME 89 fL (80-96); MONOCYTES # (AUTO) 0.5 /CMM (0.1-1.30); MONOCYTES % (AUTO) 3.2 % (2.0-12.0); NEUTROPHILS # (AUTO) 15.5 /CMM (1.8-8.9); NEUTROPHILS % (AUTO) 92.2 % (43.0-81.0); PLATELET COUNT (AUTO) 116 /CMM (150-450); RDW COEFFICIENT OF VARIATION 14.8 (11.5-15.0); RED BLOOD CELL COUNT(AUTO) 4.34 MIL/uL (4.5-6.0); WHITE BLOOD COUNT (AUTO) 16.8 K/uL (4.3-11.0)
[2017-01-12 05:23] LABS: CALCIUM, SERUM 8.7 mg/dL (8.5-10.1); CARBON DIOXIDE 29 mmol/L (21-32); CHLORIDE 103 mmol/L (98-107); CREATININE 1.1 mg/dL (0.6-1.3); GLUCOSE 199 mg/dL (74-106); PHOSPHORUS 3.8 mg/dL (2.5-4.9); SODIUM SERUM 140 mmol/L (136-145); UREA NITROGEN, BLOOD 37 mg/dL (7-18)
--- NOTE | 2017-01-12 06:00 | NUR ---
Patient OOB to bedside chair.AM care done.VS remains stable.Denies any discomfort.Verbalized wants to go home today.All due medications administered.Safety precaution maintained.
--- NOTE | 2017-01-12 07:23 | NUR ---
RT PT REFUSED HHN TX AND ABG. RN AWARE. NO SOB/RESP DISTRESS NOTED. PATIENT ON ROOM AIR.
[2017-01-12] MEDS: BLOOD SUGAR DIAGNOSTIC 1 EACH STRIP IN SCH (07:48)
[2017-01-12] MEDS: INSULIN REGULAR, HUMAN 100 UNIT/ML 3 ML VIAL SQ PRN (07:50)
--- NOTE | 2017-01-12 07:54 | NUR ---
RB ICU; ASSESSMENT Received pt awake and oriented x4. Pt denies any sob or pain. Pt currently on room air. pt states that he wants to go home and asking when doctors will round. updates given to pt. Pt verbalizes understanding and willing to wait. Pt sitting on chair, call light with in reach.
--- NOTE | 2017-01-12 08:05 | NUR ---
pt currently refusing breathing treatments and abg's. will discuss with MD when rounding
[2017-01-12] MEDS: FAMOTIDINE/PF INJ 20 MG/2 ML VIAL IV SCH (08:37)
[2017-01-12] MEDS: POTASSIUM CHLORIDE 20 MEQ TAB.PRT.SR PO SCH (08:38)
[2017-01-12] MEDS: methylPREDNISolone SOD SUCC 40 MG/ML VIAL IV SCH (08:38)
[2017-01-12] MEDS: FUROSEMIDE 80 MG TABLET PO SCH (08:38)
[2017-01-12] MEDS: HEPARIN SODIUM, PORCINE 5000 UNITS/1 ML VIAL SQ SCH (08:40)
--- NOTE | 2017-01-12 08:50 | NUR ---
WOUND CARE CONSULT: PT PRESENTS WITH MULTIPLE BRUISES ON ARMS WITH SOME DRY ABRASIONS, NO DRAINAGE. PT REFUSED FULL SKIN ASSESSMENT AND STATES IS AMBULATORY AND CONTINENT. PT SITTING IN CHAIR AT THIS TIME AT BEDSIDE. CURRENT TEJAS SCORE IS 18. WILL SEE PRN. IN AGREEMENT WITH PLAN OF CARE.
[2017-01-12] MEDS ORDERED: Z GUARD REMEDY 2 OZ OINT TP PRN (09:00)
[2017-01-12] MEDS ORDERED: LEVO750T21 PO (10:06)
[2017-01-12 11:18] LABS: ABG BASE EXCESS 3.6 mmol/L; ABG OXYGEN SATURATION 96.1 % (92.0-98.5); ABG PH 7.498 (7.350-7.450); ABG PO2 80.3 mmHg (75.0-100.0); AaDO2 27.5 mmHg; MetHb 0.6 % (0.0-1.5); O2Hb 94.6 % (94.0-97.0); SITE, ABG Right Brachial; VENT MODE, BG ROOM AIR
--- NOTE | 2017-01-12 12:15 | NUR ---
UNIX ADMINISTRATOR; DISCHARGE DISCHARGE INSTRUCTIONS GIVEN. IV HEPLOCK D/C WITH CATH TIP INTACT. NAMES BANDS REMOVED. PRESCRIPTION FOR LEVAQUIN GIVEN. PT WHEEL DOWN TO MAIN LOBBY FOR SERVICING MANAGER. PT DENIES ANY SOB VSS.
== END 2017-01-12 12:15 | disposition home or self-care (01) | DRG 871 ==
LOC: ER 18:39 → ICU 19:45
PROVIDERS: ADMIT Nurse Practitioner Acute Care; ATTEND Nurse Practitioner Acute Care
PROC: 5A09357 Assistance with Respiratory Ventilation, Less than 24 Consecutive Hours, Continuous Positive Airway Pressure (ICD-10-PCS; principal; 2017-01-10)
DX: A41.9 Sepsis, unspecified organism (principal); J96.01 Acute respiratory failure with hypoxia; N17.9 Acute kidney failure, unspecified; I50.23 Acute on chronic systolic (congestive) heart failure; J96.02 Acute respiratory failure with hypercapnia; E87.2 Acidosis; J44.1 Chronic obstructive pulmonary disease with (acute) exacerbation; I10 Essential (primary) hypertension; F17.200 Nicotine dependence, unspecified, uncomplicated; E78.5 Hyperlipidemia, unspecified; E11.65 Type 2 diabetes mellitus with hyperglycemia; I25.10 Atherosclerotic heart disease of native coronary artery without angina pectoris; I25.5 Ischemic cardiomyopathy; Z79.82 Long term (current) use of aspirin; N40.0 Benign prostatic hyperplasia without lower urinary tract symptoms; Z82.49 Family history of ischemic heart disease and other diseases of the circulatory system
CPT/HCPCS: 36415; 36600; 71010-TC; 80048-TC; 80061-TC; 80076-TC; 81000-TC; 82803-TC; 82962-TC; 83605-TC; 83735-TC; 83880; 84100-TC; 84439-TC; 84443-TC; 84484-TC; 85025-TC; 87040-TC; 87081-TC; 93307-TC; 99082-TC; A4606; J0696; J1265; J1644; J1815; J1940; J2920; J3490; J7040; J7050; J7060; Z7610

== ENCOUNTER 2017-09-16 01:29 | Inpatient (IN) | payer MEDICARE, MEDICAID ==
[~2017-09-16] VITALS: Ht 170.2 cm; Wt 47.2 kg
[~2017-09-16 01:29] MED LIST changes: -ASPI81TA2 PO; -CARV3.12 PO; +CARV3.122 PO; -DIFL5DRO OP; +FURO-144 PO; +LEVO750T21 PO; +POTA10TA15 PO; -ROSU5TAB PO
--- NOTE | 2017-09-16 01:35 | NUR ---
PT BBRA FROM HOME C/O RIGHT SIDED RIB PAIN 8/10 S/P FALL 3-4 DAYS AGO. PT ALSO STATES TO FEELING "LIGHTHEADED AND DIZZY AFTER TAKING A SHOWER". PT STATES "HE TOOK HIS BP AND GOT 50/20 AFTER FEELING LIGHTHEADED". PT IS AAOX4. PT BROUGHT BY RA WITH NR 15L/M. NR TAKEN OFF AND PT PLACED ON NC 2L/M AND SPO2 AT 95%. RESP EVEN AND UNLABORED. NO S/S OF DISTRESS NOTED. PT PLACED ON MONITOR AND POX. PT SAFETY AND COMFORT MEASURES IN PLACE. PT'S LOWER EXTREMITIES WRAPPED WITH GAUZ. BEDSIDE FOR EVAL.
[2017-09-16 02:05] LABS: ABG OXYGEN SATURATION 98.9 % (92.0-98.5); ABG PCO2 34.7 mmHg (35.0-45.0); ABG PH 7.415 (7.350-7.450); ABG PO2 157.6 mmHg (75.0-100.0); COHb 2.1 % (0.5-1.5); MetHb 0.5 % (0.0-1.5); O2Hb 96.3 % (94.0-97.0); SITE, ABG Right Brachial; VENT MODE, BG Nasal Cannula
[2017-09-16 02:18] LABS: INR 1.03 (0.87-1.13)
[2017-09-16] MEDS ORDERED: IV NS 0.9% 500 ML BAG IV ONE (02:30)
--- NOTE | 2017-09-16 02:45 | NUR ---
Patient is resting comfortably in bed with eyes closed. Easily aroused. VSS
[2017-09-16 02:56] LABS: BASOPHILS % (AUTO) 0.3 % (0.0-2.0); EOSINOPHILS % (AUTO) 0.6 % (0.0-6.0); HEMATOCRIT 29 % (39-51); HEMOGLOBIN 9.5 g/dL (13.5-17.5); LYMPHOCYTES # (AUTO) 0.9 /CMM (0.8-4.8); LYMPHOCYTES % (AUTO) 17.7 % (20.0-44.0); MEAN CORPUSCULAR HEMOGLOBIN 27 PG (26.0-33.0); MEAN CORPUSCULAR HGB CONC 33 g/dl (31.0-36.0); MEAN CORPUSCULAR VOLUME 81 fL (80-96); MONOCYTES # (AUTO) 0.4 /CMM (0.1-1.30); MONOCYTES % (AUTO) 7.3 % (2.0-12.0); NEUTROPHILS # (AUTO) 3.7 /CMM (1.8-8.9); NEUTROPHILS % (AUTO) 74.1 % (43.0-81.0); PLATELET COUNT (AUTO) 60 /CMM (150-450); RDW COEFFICIENT OF VARIATION 17.9 (11.5-15.0); RED BLOOD CELL COUNT(AUTO) 3.55 MIL/uL (4.5-6.0)
[2017-09-16 03:14] LABS: TROPONIN I 0.049 ng/mL (0.00-0.056)
[2017-09-16 03:31] LABS: LYMPHOCYTES % (MANUAL) 18 % (16-48); MONOCYTES % (MANUAL) 5 % (0-11.0); NEUTROPHILS % (MANUAL) 77 (42-76)
--- NOTE | 2017-09-16 04:01 | NUR ---
PT RESTING IN BED WITH NO S/S OF DISTRESS NOTED. WILL CONTINUE TO MONITOR PT.
--- NOTE | 2017-09-16 04:40 | NUR ---
CALLED PT'S RAAD AT: [phone] STATED THE DAUGHTER WILL BE COMING TO THE HOSPITAL AT [phone]. PT NOTIFIED OF THE CALL MADE TO HIS .
[2017-09-16] MEDS ORDERED: IBUPROFEN 400 MG TABLET ONE ×2 (04:56→05:02)
[2017-09-16 05:28] LABS: CALCIUM, SERUM 8.9 mg/dL (8.5-10.1); CARBON DIOXIDE 25 mmol/L (21-32); CHLORIDE 100 mmol/L (98-107); CREATININE 1.9 mg/dL (0.6-1.3); GLUCOSE 129 mg/dL (74-106); POTASSIUM 3.1 mmol/L (3.5-5.1); SODIUM SERUM 138 mmol/L (136-145); UREA NITROGEN, BLOOD 68 mg/dL (7-18)
[2017-09-16] MEDS ORDERED: IBUPROFEN 400 MG TABLET PO ONE (05:30)
[2017-09-16 05:40] LABS: ALANINE AMINOTRANSFERASE 28 U/L (12-78); ALBUMIN 2.9 g/dL (3.4-5.0); ALKALINE PHOSPHATASE 123 U/L (46-116); ASPARTATE AMINOTRANSFERASE 23 U/L (15-37); BILIRUBIN,DIRECT 0.3 mg/dL (0.0-0.2); BILIRUBIN,TOTAL 0.8 mg/dL (0.2-1.0); TOTAL PROTEIN, SERUM 6.6 g/dL (6.4-8.2)
[2017-09-16 06:06] LABS: B-TYPE NATRIURETIC PEPTIDE 38887 PG/ML (0-125)
[2017-09-16] MEDS ORDERED: Z GUARD REMEDY 2 OZ OINT TP PRN ×2 (07:00→08:45)
[2017-09-16] MEDS ORDERED: ALBUTEROL FS 2.5 MG/3 ML VIAL.NEB NEB PRN ×2 (07:00→08:45)
[2017-09-16] MEDS ORDERED: MORPHINE SULFATE INJ 2 MG/ML DISP.SYRIN IV PRN ×2 (07:00→08:45)
[2017-09-16] MEDS ORDERED: ONDANSETRON HCL/PF 4 MG/2 ML VIAL IVP PRN ×2 (07:00→08:45)
[2017-09-16] MEDS ORDERED: ACETAMINOPHEN 325 MG TABLET PO PRN ×2 (07:00→08:45)
--- NOTE | 2017-09-16 07:00 | NUR ---
PHLEBOTOMY BEDSIDE FOR BLOOD DRAW
--- NOTE | 2017-09-16 07:18 | NUR ---
REPORT GIVEN TO KIRBY CONKLIN FOR KRIS.
--- NOTE | 2017-09-16 07:19 | NUR ---
RECEIVED REPORT FOR KRIS. PATIENT REMAINS STABLE
[2017-09-16] MEDS ORDERED: PANTOPRAZOLE 40 MG TABLET.DR PO SCH ×2 (07:30→08:45)
[2017-09-16 07:35] LABS: CALCIUM, SERUM 8.9 mg/dL (8.5-10.1); CARBON DIOXIDE 22 mmol/L (21-32); CHLORIDE 101 mmol/L (98-107); CREATININE 1.8 mg/dL (0.6-1.3); GLUCOSE 118 mg/dL (74-106); POTASSIUM 3.4 mmol/L (3.5-5.1); SODIUM SERUM 138 mmol/L (136-145); UREA NITROGEN, BLOOD 70 mg/dL (7-18)
[2017-09-16 07:40] LABS: ALANINE AMINOTRANSFERASE 25 U/L (12-78); ALBUMIN 2.5 g/dL (3.4-5.0); ALKALINE PHOSPHATASE 114 U/L (46-116); ASPARTATE AMINOTRANSFERASE 27 U/L (15-37); BILIRUBIN,TOTAL 0.8 mg/dL (0.2-1.0); MAGNESIUM 2.3 mg/dL (1.8-2.4); PHOSPHORUS 4.2 mg/dL (2.5-4.9); TOTAL PROTEIN, SERUM 6.2 g/dL (6.4-8.2)
[2017-09-16 07:42] LABS: TROPONIN I 0.038 ng/mL (0.00-0.056)
[2017-09-16 08:03] LABS: CHOLESTEROL 134 mg/dL (<200); HDL CHOLESTEROL 60 mg/dL (40-60); LDL 63 mg/dL (0-99); THYROID STIMULATING HORMONE 2.789 uIU/mL (0.358-3.74); TRIGLYCERIDES 86 mg/dL (30-150)
[2017-09-16 08:23] LABS: BASOPHILS % (AUTO) 0.3 % (0.0-2.0); EOSINOPHILS % (AUTO) 0.5 % (0.0-6.0); HEMATOCRIT 46 % (39-51); HEMOGLOBIN 14.9 g/dL (13.5-17.5); LYMPHOCYTES # (AUTO) 1.2 /CMM (0.8-4.8); LYMPHOCYTES % (AUTO) 14.2 % (20.0-44.0); MEAN CORPUSCULAR HEMOGLOBIN 27 PG (26.0-33.0); MEAN CORPUSCULAR HGB CONC 33 g/dl (31.0-36.0); MEAN CORPUSCULAR VOLUME 82 fL (80-96); MONOCYTES # (AUTO) 0.5 /CMM (0.1-1.30); MONOCYTES % (AUTO) 6.5 % (2.0-12.0); NEUTROPHILS # (AUTO) 6.4 /CMM (1.8-8.9); NEUTROPHILS % (AUTO) 78.5 % (43.0-81.0); PLATELET COUNT (AUTO) 105 /CMM (150-450); RDW COEFFICIENT OF VARIATION 18.3 (11.5-15.0); RED BLOOD CELL COUNT(AUTO) 5.64 MIL/uL (4.5-6.0); WHITE BLOOD COUNT (AUTO) 8.1 K/uL (4.3-11.0)
--- NOTE | 2017-09-16 08:27 | NUR ---
REPORT GIVEN TO OVIDIO ORR FOR KRIS UPON ADMISSION.
[2017-09-16 08:39] LABS: IRON, SERUM 36 ug/dl (50-175); TOTAL IRON BINDING CAPACITY 277 ug/dl (250-450)
--- NOTE | 2017-09-16 08:45 | NUR ---
BHAVIK RN NOTE: RECEIVED PATIENT IN BED, AWAKE, ALERT AND ABLE TO MAKE HIS NEEDS KNOWN. RESPIRATION IS EVEN AND UNLABORED SATURATING 99% IN ROOM AIR. (R) UA PERIPHERAL LINE NOTED INTACT AND PATENT. INTRODUCED SELF AND PLACED THE PATIENT ON THE BED. PATIENT WANTED TO BE SEATED AT THE EDGE OF THE BED AT THIS TIME. DENIED ANY PAIN AT THIS TIME. V/S WAS TAKEN, 92/63, 97.6F, 83, 20, SPO2 IN RA= 99%, 0/10. PATIENT REFUSED TO HAVE A BODY CHECK. CALLED THE KITCHEN AND REQUESTED FOR THE BREAKFAST TRAY. HOB ELEVATED. BED ALARMED AND LOCKED AT ALL TIMES. CALL LIGHT WITHIN REACH. PATIENT WAS INFORMED THAT HE WILL HAVE HIS BREAKFAST AT THIS TIME AND THE NURSE WILL COME BACK TO DO A BODY CHECK. PATIENT STATED "WHATEVER! I WANTED TO REST."
[2017-09-16] MEDS ORDERED: DOCUSATE SODIUM 100 MG CAPSULE PO SCH ×2 (09:00)
[2017-09-16] MEDS ORDERED: IV NS 0.9% 1,000 ML IV PRN (09:14)
[2017-09-16] MEDS ORDERED: FENTANYL PF 100MCG/2ML AMPUL IV PRN (09:30)
[2017-09-16] MEDS ORDERED: CARVEDILOL 3.125 MG TABLET PO SCH (09:30)
[2017-09-16] MEDS ORDERED: POTASSIUM CHLORIDE 10 MEQ TABLET.SA PO SCH (09:30)
[2017-09-16] MEDS: ALBUTEROL FS 2.5 MG/3 ML VIAL.NEB NEB SCH ×2 (10:00→13:30)
[2017-09-16] MEDS: IPRATROPIUM NEB FS 0.5 MG/2.5 ML AMPUL.NEB NEB SCH ×2 (10:00→13:30)
--- NOTE | 2017-09-16 10:00 | NUR ---
EXPORT SALES ASSISTANT NOTE: RN WENT BACK TO THE PATIENT AND EXPLAINED THAT THE PATIENT NEEDS TO HAVE HIS BODY CHECK. (B) LOWER LEG WAS NOTED W/ CLEAN KERLIX AND MULTIPLE SKIN DISCOLORATIONS ON (B) UPPER EXTREMITIES. PATIENT STRONGLY REFUSED TO HAVE HIS BODY CHECK DONE AND INSISTED TO SEE THE DOCTOR. CYNTHIA HERNANDEZ NP WAS MADE AWARE AND PATIENT WAS INFORMED THAT THE DOCTOR WILL SEE HIM ANYTIME TODAY. PATIENT AGREED.
[2017-09-16 10:56] VITALS: BP 92/63
--- NOTE | 2017-09-16 11:20 | NUR ---
CORK WIRER NOTE: REPORTED TO CYNTHIA HERNANDEZ NP RE: THE LACTIC ACID OF 4.1 AND PATIENT ON IVF OF NS@125ML/HR. AND PATIENT IS VERY UNCOOPERATIVE AT THIS TIME. PATIENT INSISTED THAT HE DOES NOT NEED THE IV FLUID. TINSMITH APPRENTICE MADE AWARE WITH NO NEW ORDER.
[2017-09-16 12:00] VITALS: BP 96/60
--- NOTE | 2017-09-16 13:00 | NUR ---
AIRPLANE INSPECTOR NOTE: PATIENT WAS SEEN AND EVALUATED BY THE PHYSICAL THERAPIST AND THEY WERE INFORMED THAT THE PATIENT WAS REQUESTING FOR WALKER EARLIER. AND PATIENT WAS NOTED WALKING INSIDE THE ROOM AND GOES TO THE BATHROOM BY HIMSELF W/ STEADY GAIT.
--- NOTE | 2017-09-16 14:50 | NUR ---
INSTALLATION MANAGER NOTE: PATIENT WAS UNSTOPPABLE DESPITE CYNTHIA HERNANDEZ NP TALKING TO HIM REGARDING THE RISKS AND BENEFITS OF GETTING TREATMENT AT THIS TIME DUE TO HIS CONDITION. BUT PATIENT INSISTED THAT HIS FRIEND IS HERE TO PICK HIM UP. HE REFUSED TO GET TREATMENT AND SAID "I WANTED TO LEAVE." (R) UA IV LINE AND ID BAND WAS REMOVED. PATIENT WAS WHEELED BY ONE OF THE STAFF TO THE MAIN LOBBY WITH A WHEELCHAIR AND WAS PICKED UP BY HIS FRIEND. JOELLEN, WAS MADE AWARE.
== END 2017-09-16 14:51 | disposition left against medical advice (07) | DRG 682 ==
LOC: ER 01:31 → TELE-TD 08:43 → TELE1 09:22
PROVIDERS: ADMIT Nurse Practitioner Acute Care; ATTEND Nurse Practitioner Acute Care
DX: N17.0 Acute kidney failure with tubular necrosis (principal); I50.21 Acute systolic (congestive) heart failure; E43 Unspecified severe protein-calorie malnutrition; J84.9 Interstitial pulmonary disease, unspecified; S22.41XA Multiple fractures of ribs, right side, initial encounter for closed fracture; E87.2 Acidosis; E11.22 Type 2 diabetes mellitus with diabetic chronic kidney disease; I95.2 Hypotension due to drugs; R64 Cachexia; I13.0 Hypertensive heart and chronic kidney disease with heart failure and stage 1 through stage 4 chronic kidney disease, or unspecified chronic kidney disease; Z68.1 Body mass index [BMI] 19.9 or less, adult; E86.0 Dehydration; I25.5 Ischemic cardiomyopathy; I25.10 Atherosclerotic heart disease of native coronary artery without angina pectoris; J44.9 Chronic obstructive pulmonary disease, unspecified; W18.30XA Fall on same level, unspecified, initial encounter; E78.5 Hyperlipidemia, unspecified; N40.0 Benign prostatic hyperplasia without lower urinary tract symptoms; Y92.89 Other specified places as the place of occurrence of the external cause; D50.9 Iron deficiency anemia, unspecified; N18.9 Chronic kidney disease, unspecified; R29.6 Repeated falls; Z87.891 Personal history of nicotine dependence
CPT/HCPCS: 36415; 36600; 71100-TC; 71250-TC; 80048-TC; 80053-TC; 80061-TC; 80076-TC; 82378; 82803-TC; 83540-TC; 83605-TC; 83735-TC; 83880; 84100-TC; 84443-TC; 84484-TC; 85025-TC; 85730-TC; 87040-TC; 87081-TC; 93307-TC; A4606; J7030; J7040; Z7610